=== PATIENT | male | born 1950 | race Caucasian/White ===

== ENCOUNTER 2021-09-10 12:33 | Inpatient (IN) | payer OTHER ==
[~2021-09-10] VITALS: Ht 180.3 cm; Wt 91.0 kg
[2021-09-10 13:47] LABS: BASO # 0.1 K/mm3 (0.0-0.2); BASO % 0.5 % (0.0-2.0); EOS # 0.2 K/mm3 (0.0-0.7); EOS % 1.5 % (0-4.0); GRAN # 8.1 K/mm3 (1.4-6.5); GRAN % 72.9 % (42.2-75.2); HEMATOCRIT 39.7 % (42.0-52.0); HEMOGLOBIN 13.6 g/dl (13.5-18.0); LYMPH # 2.1 K/mm3 (1.2-3.4); LYMPH % 18.9 % (20.0-51.0); MEAN CELL VOLUME 87 fl (80.0-100.0); MEAN CORPUSCULAR HEMOGLOBIN 30 pg (27.0-31.0); MEAN CORPUSCULAR HGB CONC 34 g/dl (33.0-37.0); MEAN PLATELET VOLUME 9.8 fl (7.4-10.4); MONO # 0.7 K/mm3 (0.1-0.6); MONO % 5.9 % (1.7-9.3); PLATELET COUNT 228 K/mm3 (130-400); RED BLOOD COUNT 4.59 M/mm3 (4.20-5.60); REDCELL DISTRIBUTION WIDTH-CV 12.6 % (11.5-14.5)
[2021-09-10 14:05] LABS: ALBUMIN 3.4 gm/dL (3.4-4.8); BILIRUBIN,TOTAL 0.8 mg/dL (0.2-1.2); C-REACTIVE PROTEIN 11.4 mg/dL (0.00-0.50); CALCIUM 9.2 mg/dL (8.4-10.2); CREATININE, serum 1.06 mg/dL (0.72-1.25); TOTAL PROTEIN 7.2 gm/dL (6.2-8.1)
[2021-09-10 14:12] LABS: ERYTHROCYTE SEDIMENTATION RATE 38 mm/hr (0-30)
[2021-09-10] MEDS ORDERED: VITAMIN B12 781 TAB PO (14:47)
[2021-09-10] MEDS ORDERED: ASPIRIN 81M81 MG/TA2 PO (14:48)
[2021-09-10] MEDS ORDERED: COREG 6.256.25 MG/TA PO (14:49)
[2021-09-10] MEDS ORDERED: PRINIVIL10 MG PO (14:49)
[2021-09-10] MEDS ORDERED: LIPITOR 80MG80 MG PO (14:50)
[2021-09-10] MEDS ORDERED: JARDIANCE25 (14:51)
[2021-09-10] MEDS ORDERED: ZOLOFT 50MG50 MG PO (14:53)
[2021-09-10] MEDS ORDERED: GLUCOPHAGE1000 MG PO (14:53)
[2021-09-10] MEDS ORDERED: OZEMPIC0.25 MG/0. SQ (14:55)
--- NOTE | 2021-09-10 16:05 | NUR ---
Vancomycin Initial Dosing Pharmacy Note Ordering provider: Berny Thompson MD Indication/duration: Cellulitis w/ suspected osteo, 7 days LABS: SCr 1.06, CrCl~66, GFR 69 Recommendation: Will give Vancomycin 1 gm IV q12h. Pharmacy will continue to closely monitor and check a Vancomycin trough on 09/12/21. Loading dose: 2 grams Maintenance dose: 1 gram every 12 hours Trough goal: 15-20 ug/mL
[2021-09-10 16:28] VITALS: BP 95/65; PULSE 78; TEMP 98.2
--- NOTE | 2021-09-10 16:40 | NUR ---
NATY. STATED ACUTE DC. NOTIFIED RN WHO TALKED TO RAZA LEOS WHO WILL CONTACT DR SORIA
[2021-09-10 20:04] VITALS: BP 122/54; PULSE 78; TEMP 98.4
[2021-09-11] VITALS (7 sets, daily range): BP systolic 119–137; BP diastolic 55–82; PULSE 67–82; TEMP 97.5–98.8
--- NOTE | 2021-09-11 06:33 | NUR ---
PT HAD AN UNEVENTFUL NIGHT. TOOK ALL MEDICATIONS PRESCRIBED. DENIES PAIN. PT IS ASKING QUESTIONS ABOUT WHEN THE DECISION FOR TOE AMPUTATION WILL BE MADE. EDUCATION ABOUT ORTHO CONSULT GIVEN. PT NPO SINCE MIDNIGHT. CALL LIGHT IN REACH. NO OTHER NEEDS AT THIS TIME.
[2021-09-11 07:55] LABS: BASO % 0.4 % (0.0-2.0); EOS # 0.2 K/mm3 (0.0-0.7); EOS % 1.6 % (0-4.0); GRAN # 6.5 K/mm3 (1.4-6.5); GRAN % 68.8 % (42.2-75.2); HEMOGLOBIN 12.5 g/dl (13.5-18.0); LYMPH % 20.7 % (20.0-51.0); MEAN CELL VOLUME 86 fl (80.0-100.0); MEAN CORPUSCULAR HEMOGLOBIN 30 pg (27.0-31.0); MEAN CORPUSCULAR HGB CONC 35 g/dl (33.0-37.0); MEAN PLATELET VOLUME 9.7 fl (7.4-10.4); MONO # 0.8 K/mm3 (0.1-0.6); MONO % 8.2 % (1.7-9.3); PLATELET COUNT 205 K/mm3 (130-400); RED BLOOD COUNT 4.21 M/mm3 (4.20-5.60); REDCELL DISTRIBUTION WIDTH-CV 12.5 % (11.5-14.5)
[2021-09-11 07:57] LABS: HEMATOCRIT 36.1 % (42.0-52.0)
[2021-09-11 08:24] LABS: TROPONIN-I < 0.010 ng/mL (0.00-0.033)
[2021-09-11 08:40] LABS: ANION GAP 10 mmol/L (7-16); BLOOD UREA NITROGEN 15 mg/dL (8-26); CALCIUM 8.5 mg/dL (8.4-10.2); CARBON DIOXIDE 20 mmol/L (23-31); CHLORIDE 105 mmol/L (98-107); CREATININE, serum 0.78 mg/dL (0.72-1.25); GLUCOSE 113 mg/dL (70-99); MAGNESIUM 1.5 mg/dL (1.6-2.6); POTASSIUM 3.6 mmol/L (3.5-4.5); SODIUM 135 mmol/L (136-145)
--- NOTE | 2021-09-11 08:50 | NUR ---
PT PLEASANT, AOX4, DENIES PAIN, STEADY GAIT TO BATHROOM IN AM, ASSESSMENT PERFORMED, MEDICATIONS GIVEN, NO OTHER NEEDS
--- NOTE | 2021-09-11 17:05 | NUR ---
PT PLEASANT, AOX4, DENIES PAIN, IV INFILTRATED EARLIER IN THE DAY WITH MAG INFUSING. NEW IV SITE TO LFA. ANX FINISHED INFUSING, NO COMPLAINTS, PT TO BE NPO MDN. NO OHTER NEEDS
--- NOTE | 2021-09-11 22:55 | NUR ---
PT ASSSESSMENT COMPLETED. PT DENIES ANY PAIN. PT STATES FOOT IS LOOKING BETTER WITH THE ANTIBIOTICS, BUT VERBALIZES HE CANNOT DUE THE ANTIBIOTIC TREATMENT REGIMENT IF WENT ALONG WITH CONSERVATIVE TREATMENT. PT VERBALIZED UNDERSTANDING OF BEING NPO AT MIDNIGHT FOR SURGERY TOMORROW. PT VERBALIZED UNDERSTANDING. NO OTHER NEEDS AT THIS TIME.
[2021-09-12 05:35] VITALS: BP 135/64; PULSE 71; TEMP 98.4
[2021-09-12 07:51] VITALS: BP 120/61; PULSE 68; TEMP 98.7
--- NOTE | 2021-09-12 09:25 | NUR ---
RECIEVED CALL FROM DR. DOTY SAYING PT SURGERY WOULD NOT OCCUR UNTIL TOMORROW, ALSO SAID PT COULD EAT, DIET ORDER PLACED FOR PT.
--- NOTE | 2021-09-12 10:15 | NUR ---
PT ASSESSED, CALL LIGHT WITHIN REACH, EDUCATED ON PROCEDURE OCCURING TOMORROW, DIET ORDERED FOR PT, NO OTHER NEEDS
[2021-09-12 11:41] VITALS: BP 113/59; PULSE 68; TEMP 98.1
--- NOTE | 2021-09-12 12:28 | NUR ---
PT ATE BREAKFAST RECENTLY AND DID NOT PLAN ON ORDERING LUNCH
--- NOTE | 2021-09-12 13:08 | NUR ---
process worker met with patient to discuss discharge plan.Patient reports that he moved to [facility] about 2 weeks ago from [place], [place]. He currently lives alone. Patient reports that he is independent with his activies of daily living and does not utilize any DME to assist with mobility. Patient does not utilize oxygen at home but does have [facility]. [facility] [place] but has not been able to establish here in [place] yet. Would like to establish with the location. [facility] the [facility] as well. Patient does not have a DPOA-HC established and is not interested in creating one at this time. He is but has two audult sons, one living in [place] and one living in [facility]. His oldest son is Edgar ([phone]). Patient reports that he has a sister that lives in [place] that is planning on coming down to stay with him once he gets home for a few weeks. Discharge plan: Home pending Pt/OT Pamela
[2021-09-12 17:21] VITALS: BP 142/60; PULSE 65; TEMP 97.9
--- NOTE | 2021-09-12 18:35 | NUR ---
PT EAGER FOR SURGERY TOMORROW, EAGER FOR DISCHARGE, PT HAD UNEVENTFUL SHIFT, MRI PERFORMED, NO OTHER NEEDS
[2021-09-12 19:26] VITALS: BP 128/52; PULSE 65; TEMP 97.9
--- NOTE | 2021-09-12 20:00 | NUR ---
Assessment complete. Patient is alert and oriented with no complaints of pain. Lungs clear and HR normal/regular. Left second toe is black and necrotic; scheudled to be amputated tomorrow. Left lower leg/ankle/foot is slightly reddened, warm and edematous but is not causing patient pain. No new concerns, call light in reach.
[2021-09-13] VITALS (13 sets, daily range): BP systolic 97–146; BP diastolic 50–73; PULSE 66–74; TEMP 98.1–98.6
[2021-09-13 07:09] LABS: BASO % 0.4 % (0.0-2.0); EOS # 0.2 K/mm3 (0.0-0.7); EOS % 2.4 % (0-4.0); GRAN # 6.3 K/mm3 (1.4-6.5); GRAN % 65.4 % (42.2-75.2); HEMOGLOBIN 12.7 g/dl (13.5-18.0); LYMPH # 2.3 K/mm3 (1.2-3.4); LYMPH % 23.6 % (20.0-51.0); MEAN CELL VOLUME 86 fl (80.0-100.0); MEAN CORPUSCULAR HEMOGLOBIN 30 pg (27.0-31.0); MEAN CORPUSCULAR HGB CONC 35 g/dl (33.0-37.0); MEAN PLATELET VOLUME 9.7 fl (7.4-10.4); MONO # 0.8 K/mm3 (0.1-0.6); PLATELET COUNT 242 K/mm3 (130-400); RED BLOOD COUNT 4.23 M/mm3 (4.20-5.60); REDCELL DISTRIBUTION WIDTH-CV 12.6 % (11.5-14.5)
[2021-09-13 07:11] LABS: HEMATOCRIT 36.4 % (42.0-52.0)
[2021-09-13 07:20] LABS: CALCIUM 9.3 mg/dL (8.4-10.2); CREATININE, serum 0.78 mg/dL (0.72-1.25); POTASSIUM 3.8 mmol/L (3.5-4.5)
--- NOTE | 2021-09-13 08:10 | NUR ---
CONSENT OBTAINED, MEDICATIONS GIVEN WITH SIP OF WATER, ASSESSMENT PERFORMED, NO OTHER NEEDS
--- NOTE | 2021-09-13 10:05 | NUR ---
PT RETURNED FROM PROCEDURE, CMS WITHIN NORMAL LIMITS, PT DROWSY BUT AROUSABLE BY NAME, VITALS STABLE, PT AOX4, DIET REORDERED, ICE WATER BROUGHT IN FOR PT
[2021-09-13] MEDS ORDERED: ROXICODONE 55 MG/TAB PO ×2 (11:55→14:58)
--- NOTE | 2021-09-13 14:37 | NUR ---
DISCHARGE EDUCATION PROVIDED, MEDICATIONS GIVEN PER SCHEDULE, IV REMOVED, NO OTHER NEEDS
--- NOTE | 2021-09-13 15:14 | NUR ---
Phone call made to [facility] and spoke with Mercy in physical therapy who states that they will be able to see the patient as an out patient and she would just need the orders faxed. Clinical documentaion faxed to [phone]. Phone call made to patient who verbalized his understanding of this.
== END 2021-09-13 14:30 | disposition home or self-care (01) | DRG 617 ==
LOC: COL.ER 12:33 → MEDICAL 14:56
PROVIDERS: Orthopaedic Surgery Sports Medicine; Physician Assistant; ADMIT Internal Medicine
PROC: 0Y6R0Z1 Detachment at Right 2nd Toe, High, Open Approach (ICD-10-PCS; principal; 2021-09-13 11:30)
DX: E11.69 Type 2 diabetes mellitus with other specified complication (principal); E11.52 Type 2 diabetes mellitus with diabetic peripheral angiopathy with gangrene; I50.30 Unspecified diastolic (congestive) heart failure; I96 Gangrene, not elsewhere classified; M86.8X7 Other osteomyelitis, ankle and foot; L03.032 Cellulitis of left toe; I25.10 Atherosclerotic heart disease of native coronary artery without angina pectoris; Z95.1 Presence of aortocoronary bypass graft; F32.A Depression, unspecified; E78.5 Hyperlipidemia, unspecified; Z89.412 Acquired absence of left great toe; I10 Essential (primary) hypertension; Z79.82 Long term (current) use of aspirin; I11.0 Hypertensive heart disease with heart failure; J06.9 Acute upper respiratory infection, unspecified; J44.9 Chronic obstructive pulmonary disease, unspecified
CPT/HCPCS: 99223-AI; 99233-AI; 99239; A9284; A9575; J0696; J2250; J2704; J3010; J3370; J3475; J7030; J7040; J7050